=== PATIENT | female | born 1975 | race Caucasian/White ===

== ENCOUNTER 2017-06-04 15:02 | Emergency (ER) | payer MEDICAID ==
[~2017-06-04] VITALS: Ht 165.1 cm; Wt 63.5 kg
[~2017-06-04 15:02] MED LIST: LAMICTAL ODT200 MG PO; LUNESTA2 MG PO; NEURONTIN300 MG PO; NORCO 5-325 TA1 EACH PO; PHENERGAN 25 MG25 M1 PO; TRAZODONE HCL100 MG PO; ZPAK PO
[2017-06-04] MEDS ORDERED: LATUDA20 MG PO (15:20)
[2017-06-04] MEDS ORDERED: TRAMADOL 50 MG50 MG PO (15:52)
[2017-06-04 16:19] VITALS: BP 121/85
== END 2017-06-04 16:20 | disposition home or self-care (01) ==
LOC: M.ERS 15:02
DX: M25.562 Pain in left knee (principal); F41.9 Anxiety disorder, unspecified; F31.9 Bipolar disorder, unspecified

== ENCOUNTER 2020-04-18 19:08 | Emergency (ER) | payer OTHER ==
[~2020-04-18] VITALS: Ht 165.1 cm; Wt 61.2 kg
[~2020-04-18 19:08] MED LIST changes: +LATUDA20 MG PO; +TRAMADOL 50 MG50 MG PO
[2020-04-18 19:18] VITALS: BP 141/88
[2020-04-18] MEDS ORDERED: BACTRIM DS TAB1 EACH PO (19:51)
[2020-04-18] MEDS ORDERED: CENTANY30 GM TOP (19:51)
[2020-04-19] MEDS ORDERED: ACTICIN 5% CREA60 G1 TOP (20:46)
== END 2020-04-18 19:55 | disposition home or self-care (01) ==
LOC: M.ERS 19:08
DX: R21 Rash and other nonspecific skin eruption (principal); Z88.8 Allergy status to other drugs, medicaments and biological substances

== ENCOUNTER 2020-04-19 20:01 | Emergency (ER) | payer OTHER ==
[~2020-04-19] VITALS: Ht 165.1 cm; Wt 61.2 kg
[~2020-04-19 20:01] MED LIST changes: +BACTRIM DS TAB1 EACH PO; +CENTANY30 GM TOP
[2020-04-19 20:11] VITALS: BP 143/93
[2020-04-19] MEDS ORDERED: ACTICIN 5% CREA60 G1 TOP (20:46)
== END 2020-04-19 21:05 | disposition home or self-care (01) ==
LOC: M.ERS 20:01
DX: R21 Rash and other nonspecific skin eruption (principal); F31.9 Bipolar disorder, unspecified; F41.9 Anxiety disorder, unspecified; Z79.2 Long term (current) use of antibiotics; Z79.899 Other long term (current) drug therapy; Z88.8 Allergy status to other drugs, medicaments and biological substances; Z71.1 Person with feared health complaint in whom no diagnosis is made